=== PATIENT | male | born 1975 | race Caucasian/White ===

== ENCOUNTER 2020-05-25 09:30 | Day surgery (SDC) | payer OTHER ==
[2020-05-25] MEDS ORDERED: Lidocaine 1% (PF) 30 ML VIAL ONE (10:02)
[2020-05-25] MEDS ORDERED: Midazolam HCl 2 mg/2 ml Vial ONE (10:02)
[2020-05-25] MEDS ORDERED: Dexamethasone 4 mg/ml Vial ONE (10:02)
[2020-05-25] MEDS ORDERED: Fentanyl 100 MCG/2 ML VIAL ONE (10:02)
[2020-05-25] MEDS ORDERED: Dexamethasone 20 MG/5 ML VIAL ONE (10:09)
[2020-05-25] MEDS ORDERED: Bupivacaine HCl 0.5%/Epinephrine 1:200,000/PF 30 ml Vial ONE (10:09)
[2020-05-25] MEDS ORDERED: Ondansetron PF 4 MG/2 ML Vial ONE (10:09)
[2020-05-25] MEDS ORDERED: PROPOFOL 200 MG/20 ML VIAL ONE (10:09)
[2020-05-25] MEDS ORDERED: Morphine 4 MG/ML VIAL ONE (12:45)
--- NOTE | 2020-05-25 13:27 | OP ---
DATE OF PROCEDURE: 05/25/2020 PROCEDURE PERFORMED: Open reduction and internal fixation of right ankle fracture. PREOPERATIVE DIAGNOSIS: Right ankle fracture with syndesmosis disruption. POSTOPERATIVE DIAGNOSIS: Right ankle fracture with syndesmosis disruption. COMPLICATIONS: None. ESTIMATED BLOOD LOSS: Minimal. EMPLOYEE RELATIONS ADMINISTRATOR: Loreto Moise PA-C INDICATIONS: Mr. Waite is a 44-year-old male, who has fallen and fractured his right ankle. He slipped on ice. He has an unstable ankle fracture dislocation. He has been indicated for open reduction and internal fixation to restore anatomic alignment and promote healing. Risks have been reviewed in detail. He has elected to proceed with the operation. DESCRIPTION OF PROCEDURE: Mr. Waite was identified in the preoperative holding area. His correct extremity was marked. He was carried to the operating room. He was positioned supine. General anesthesia was induced. A multidisciplinary time-out was performed. The right lower extremity was prepped and draped in sterile fashion. We began the procedure with exploration of the patient's ankle. We opened the lateral side. We dissected down through the subcutaneous tissues to the bony level. We exposed the underlying fracture. At this point, we pulled traction on the bone and reduced the fracture using reduction clamp. Next, we placed an interfragmentary screw using appropriate intraoperative x-ray and our drill guide. We then placed a 6-hole plate along the lateral cortex of the fibula. Six screws were placed locking the plate to the bone holding our reduction. We took x-ray images including a stress view x-ray. The stress view x-ray demonstrated that the patient had an unstable syndesmosis. We removed one of the screws from the plate and placed a syndesmosis screw transfixing the syndesmosis. At this point, we repeated stress view, which was negative. We then took final images. We thoroughly irrigated with copious lavage. We then closed in layers and applied a well-padded splint. The patient was taken to the recovery room in good condition. The medical office assistant instructor surgeon was responsible for positioning the patient, preparing the injured extremity, applying the tourniquet, and assisting in preparation for surgery. The medical office assistant instructor was instrumental in reducing the injured limb by applying traction and reduction maneuvers as well as holding retractors and reduction tools. The medical office assistant instructor also was instrumental in assisting in exposure throughout the operation using appropriate retractors. The medical office assistant instructor participated in closure of the operative site as well as dressing application and splint application. Job ID: [id number]
--- NOTE | 2020-05-25 13:35 | CON ---
DATE OF CONSULTATION: 05/25/2020 CHIEF COMPLAINT: Right ankle pain. HISTORY OF PRESENT ILLNESS: Mr. Waite is a 44-year-old male, who has fallen and fractured his right ankle. He was caring a calf when he slipped on the ice. He dislocated his ankle. He was seen in [place], where he had a closed reduction. He was transferred for surgery. He has had adequate pain control. He denies other injuries. He is healthy at baseline. PAST MEDICAL HISTORY: He reports previous high blood pressure, but is no longer taking any medications. PAST SURGICAL HISTORY: Negative. ALLERGIES: NO KNOWN DRUG ALLERGIES. MEDICATIONS: None. FAMILY MEDICAL HISTORY: Noncontributory. REVIEW OF SYSTEMS: Positive for right ankle pain only. IMAGING DATA: Right ankle x-ray demonstrated initial fracture dislocation of the ankle. He has lateral malleolus fracture with displacement. He has had a postreduction x-ray, which show improved alignment. He has some widening of the syndesmosis. PHYSICAL EXAMINATION: VITAL SIGNS: Stable. The patient is afebrile. GENERAL: He is alert. He is oriented. No apparent distress. Breathing comfortably. RESPIRATORY: Equal chest rise. CARDIOVASCULAR: Pulses palpable and regular. ABDOMEN: Soft, nontender, nondistended. MUSCULOSKELETAL: The patient's right lower extremity is splinted. He is able to flex and extend the toes. He has 2-second capillary refill. He is able to wiggle the toes. IMPRESSION: Right ankle fracture dislocation. PLAN: At this point, the patient will go to the operating room for open reduction and internal fixation of the right ankle. We will plan for this today. He will have open reduction and internal fixation of his ankle to restore anatomic alignment and promote healing. He will be n.p.o. He will have antibiotics on-call to the operating room. He will have pain control. Job ID: [id number]
--- NOTE | 2020-05-25 19:20 | RAD ---
LEFT ANKLE THREE VIEWS: 05/07/20 HISTORY: Intraoperative film. These C-arm views show plate and screws stabilizing the distal fibular fracture in place. A lag type screw has been placed across the tibia and fibula at the level of the interosseous ligament. IMPRESSION: Open reduction and internal fixation of fracture dislocation. POS: [facility]
== END 2020-05-25 14:30 | disposition home or self-care (01) ==
LOC: SDC 09:30
PROVIDERS: ATTEND Orthopaedic Surgery
PROC: 0QSJ04Z Reposition Right Fibula with Internal Fixation Device, Open Approach (ICD-10-PCS; principal; 2020-05-25)
PROC: 3E0T3BZ Introduction of Anesthetic Agent into Peripheral Nerves and Plexi, Percutaneous Approach (ICD-10-PCS; principal; 2020-05-25)
DX: S82.61XA Displaced fracture of lateral malleolus of right fibula, initial encounter for closed fracture (principal); S93.431A Sprain of tibiofibular ligament of right ankle, initial encounter; G89.18 Other acute postprocedural pain; E66.9 Obesity, unspecified; F17.290 Nicotine dependence, other tobacco product, uncomplicated; Z20.822 Contact with and (suspected) exposure to COVID-19; W00.0XXA Fall on same level due to ice and snow, initial encounter
CPT/HCPCS: 76000; C1713; J0690; J1100; J2001; J2250; J2270; J2405; J2704; J3010

== ENCOUNTER 2020-09-24 13:11 | Outpatient (CLI) | payer OTHER ==
[2020-09-24 23:39] LABS: SARS-CoV-2 PCR by NAA Not Detected (NotDetected)
== END 2020-09-24 13:12 | disposition home or self-care (01) ==
LOC: LABBT 13:11
PROVIDERS: ATTEND Orthopaedic Surgery
DX: Z01.812 Encounter for preprocedural laboratory examination (principal); T85.848A Pain due to other internal prosthetic devices, implants and grafts, initial encounter; Z20.822 Contact with and (suspected) exposure to COVID-19
CPT/HCPCS: U0003; U0005

== ENCOUNTER 2020-09-26 11:14 | Day surgery (SDC) | payer OTHER ==
[2020-09-25 11:43] VITALS: BMI 30.8
[2020-09-26] MEDS ORDERED: Midazolam HCl 2 mg/2 ml Vial ONE (12:02)
[2020-09-26] MEDS ORDERED: Fentanyl 100 MCG/2 ML VIAL ONE (12:02)
[2020-09-26] MEDS ORDERED: PROPOFOL 200 MG/20 ML VIAL ONE (12:56)
[2020-09-26] MEDS ORDERED: Ondansetron PF 4 MG/2 ML Vial ONE (12:56)
[2020-09-26] MEDS ORDERED: Dexamethasone 20 MG/5 ML VIAL ONE (12:56)
[2020-09-26] MEDS ORDERED: Bupivacaine PF 0.5% 30 ML VIAL ONE (13:13)
== END 2020-09-26 15:20 | disposition home or self-care (01) ==
LOC: SDC 11:14
PROVIDERS: ATTEND Orthopaedic Surgery
PROC: 0SPF04Z Removal of Internal Fixation Device from Right Ankle Joint, Open Approach (ICD-10-PCS; principal; 2020-09-26)
DX: S82.841D Displaced bimalleolar fracture of right lower leg, subsequent encounter for closed fracture with routine healing (principal); S93.431D Sprain of tibiofibular ligament of right ankle, subsequent encounter; Z87.891 Personal history of nicotine dependence; Z79.899 Other long term (current) drug therapy; X58.XXXD Exposure to other specified factors, subsequent encounter
CPT/HCPCS: 76000; J0690; J1100; J2250; J2405; J2704; J3010; S0020